=== PATIENT | male | born 1945 | race African-American/Black ===

== ENCOUNTER 2016-12-25 13:58 | Inpatient (IN) | payer MEDICARE, MEDICAID ==
[~2016-12-25] VITALS: Ht 170.2 cm; Wt 63.5 kg
[2016-12-25 14:30] VITALS: BP 129/87
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
[2016-12-25] MEDS ORDERED: HALO100A2 IM (15:11)
[2016-12-25] MEDS ORDERED: DIPH25TA23 PO (15:11)
[2016-12-25] MEDS ORDERED: ACETAMINOPHEN 325 MG TABLET PO PRN (15:30)
[2016-12-25] MEDS ORDERED: MAG HYDROX/AL HYDROX/SIMETH 30 ML UDC PO PRN (15:30)
[2016-12-25] MEDS ORDERED: MAGNESIUM HYDROXIDE 30 ML UDC PO PRN (15:30)
[2016-12-25 15:45] VITALS: BP 109/78
[2016-12-25] MEDS: HALOPERIDOL 5 MG TABLET PO SCH (18:10)
[2016-12-25 19:57] VITALS: BP 124/76
[2016-12-25] MEDS: BENZTROPINE MESYLATE (1 MG) 1 MG TABLET PO SCH (23:30)
--- NOTE | 2016-12-25 23:30 | NUR ---
GPS RN: PATIENT IN THE ROOM, ASLEEP, NOTED TO BE EASILY AGITATED. COGENTIN MEDICATION NOT ADMINISTERED, PATIENT HAS NO SIGNED CONSENT THIS TIME. WILL FOLLOW WITH PATIENT IN THE MORNING.
[2016-12-26 07:00] LABS: ALANINE AMINOTRANSFERASE 37 U/L (12-78); ALBUMIN 3.2 g/dL (3.4-5.0); ALKALINE PHOSPHATASE 69 U/L (46-116); ASPARTATE AMINOTRANSFERASE 38 U/L (15-37); BILIRUBIN,TOTAL 0.7 mg/dL (0.2-1.0); CARBON DIOXIDE 30 mmol/L (21-32); CHLORIDE 104 mmol/L (98-107); CREATININE 1.2 mg/dL (0.6-1.3); GLUCOSE 131 mg/dL (74-106); POTASSIUM 4.3 mmol/L (3.5-5.1); SODIUM SERUM 137 mmol/L (136-145); TOTAL PROTEIN, SERUM 6.6 g/dL (6.4-8.2); UREA NITROGEN, BLOOD 20 mg/dL (7-18)
[2016-12-26 07:01] LABS: CHOLESTEROL 141 mg/dL (<200); HDL CHOLESTEROL 82 mg/dL (40-60); LDL 53 mg/dL (0-99); TRIGLYCERIDES 69 mg/dL (30-150)
[2016-12-26 08:00] VITALS: BP 120/76
[2016-12-26] MEDS: HALOPERIDOL 5 MG TABLET PO SCH ×2 (08:09→16:46)
[2016-12-26] MEDS: BENZTROPINE MESYLATE (1 MG) 1 MG TABLET PO SCH ×2 (08:54→16:46)
[2016-12-26] MEDS: NICOTINE PATCH (21MG) 21 MG PATCH.TD24 TD SCH (09:33)
--- NOTE | 2016-12-26 14:34 | NUR ---
Initial Discharge Plan: Pt resides in [address] [place] [id number]; [facility], [facility]. Pt does not have a telephone #. Pt does not have an emergency personnel consultant, per pt report and Face sheet information. Pt wants to return home upon discharge. SW will follow up. SW will help formulate a safe and proper discharge.
[2016-12-26 15:32] VITALS: BP 108/67
[2016-12-26] MEDS: TEMAZEPAM 7.5 MG CAPSULE PO PRN (21:27)
[2016-12-27 08:00] VITALS: BP 100/53
[2016-12-27] MEDS: DIVALPROEX SODIUM 250 MG TABLET.DR PO SCH ×2 (08:13→17:03)
[2016-12-27] MEDS: BENZTROPINE MESYLATE (1 MG) 1 MG TABLET PO SCH ×2 (08:13→17:04)
[2016-12-27] MEDS: HALOPERIDOL 5 MG TABLET PO SCH ×2 (08:13→17:04)
[2016-12-27] MEDS: NICOTINE PATCH (21MG) 21 MG PATCH.TD24 TD SCH (08:14)
[2016-12-27 16:30] VITALS: BP 138/93
[2016-12-27 20:10] VITALS: BP 127/77
[2016-12-27] MEDS: TEMAZEPAM 7.5 MG CAPSULE PO PRN (21:23)
[2016-12-28 08:06] VITALS: BP 122/77
[2016-12-28] MEDS: HALOPERIDOL 5 MG TABLET PO SCH ×2 (08:15→16:48)
[2016-12-28] MEDS: DIVALPROEX SODIUM 250 MG TABLET.DR PO SCH ×2 (08:15→16:48)
[2016-12-28] MEDS: BENZTROPINE MESYLATE (1 MG) 1 MG TABLET PO SCH ×2 (08:15→16:48)
[2016-12-28] MEDS: NICOTINE PATCH (21MG) 21 MG PATCH.TD24 TD SCH (08:16)
[2016-12-28] MEDS: TMP LEFTEYE SCH ×3 (14:35→21:20)
[2016-12-28] MEDS: POLYMYXIN B SULFATE LEFTEYE SCH ×3 (14:35→21:20)
[2016-12-28 15:38] VITALS: BP 109/79
[2016-12-28 20:00] VITALS: BP 137/94
[2016-12-28] MEDS: clonazePAM 0.5 MG TABLET PO PRN (22:00)
[2016-12-29] MEDS: TEMAZEPAM 7.5 MG CAPSULE PO PRN ×2 (00:14→21:55)
[2016-12-29 07:55] VITALS: BP 125/95
[2016-12-29] MEDS: NICOTINE PATCH (21MG) 21 MG PATCH.TD24 TD SCH ×2 (08:17→08:22)
[2016-12-29] MEDS: BENZTROPINE MESYLATE (1 MG) 1 MG TABLET PO SCH ×2 (08:17→16:23)
[2016-12-29] MEDS: HALOPERIDOL 5 MG TABLET PO SCH ×2 (08:17→16:23)
[2016-12-29] MEDS: TMP LEFTEYE SCH ×4 (08:18→19:30)
[2016-12-29] MEDS: POLYMYXIN B SULFATE LEFTEYE SCH ×4 (08:18→19:30)
[2016-12-29] MEDS ORDERED: DIVALPROEX SODIUM 250 MG TABLET.DR PO SCH (09:00)
--- NOTE | 2016-12-29 15:48 | NUR ---
Pt. refused the eye drops, explained on the importance and still refusing and said " I'm good".
[2016-12-29 16:11] VITALS: BP 127/85
--- NOTE | 2016-12-29 19:30 | NUR ---
PT REFUSED THE EYE DROPS. EXPLAIN THE RISK AND IMPORTANCE. PT STILL REFUSED. WILL ENDORSE TO THE NEXT SHIFT NURSE FOR ELLA.
[2016-12-29 20:03] VITALS: BP 118/65
[2016-12-29] MEDS: clonazePAM 0.5 MG TABLET PO PRN (20:22)
[2016-12-29] MEDS: DIVALPROEX SODIUM 250 MG TABLET.DR PO SCH (22:10)
[2016-12-30] MEDS: TMP LEFTEYE SCH ×4 (07:35→19:30)
[2016-12-30] MEDS: POLYMYXIN B SULFATE LEFTEYE SCH ×4 (07:35→19:30)
[2016-12-30 08:00] VITALS: BP 126/84
[2016-12-30] MEDS: HALOPERIDOL 5 MG TABLET PO SCH ×2 (08:43→16:31)
[2016-12-30] MEDS: BENZTROPINE MESYLATE (1 MG) 1 MG TABLET PO SCH ×2 (08:43→16:31)
[2016-12-30] MEDS: DIVALPROEX SODIUM 250 MG TABLET.DR PO SCH ×3 (08:43→16:31)
[2016-12-30] MEDS: NICOTINE PATCH (21MG) 21 MG PATCH.TD24 TD SCH (08:43)
--- NOTE | 2016-12-30 11:59 | NUR ---
RN-NOTES PATIENT STRONGLY REFUSED 0900 AM AND 11 30 DOSE OF LEFT EYE DROPS MEDICATIONS DESPITE EXPLANATIONS OF THE RISK AND BENEFITS. PATIENT GETS ANGRY AND YELLS AT THE DISTRICT GAUGER. OFFERED X3. ROBI DALY.
[2016-12-30 16:00] VITALS: BP 124/78
[2016-12-30 20:00] VITALS: BP 138/80
--- NOTE | 2016-12-30 21:38 | NUR ---
PT REFUSED THE EYE DROPS. EXPLAIN THE RISK AND IMPORTANCE. PT STILL REFUSED. WILL ENDORSE TO THE NEXT SHIFT NURSE FOR ELLA.
[2016-12-30] MEDS: clonazePAM 0.5 MG TABLET PO PRN (21:47)
[2016-12-31] MEDS: BENZTROPINE MESYLATE (1 MG) 1 MG TABLET PO SCH ×2 (08:14→16:18)
[2016-12-31] MEDS: DIVALPROEX SODIUM 250 MG TABLET.DR PO SCH ×3 (08:14→16:19)
[2016-12-31] MEDS: HALOPERIDOL 5 MG TABLET PO SCH ×2 (08:15→16:18)
[2016-12-31 08:16] VITALS: BP 119/88
[2016-12-31] MEDS: NICOTINE PATCH (21MG) 21 MG PATCH.TD24 TD SCH (08:20)
[2016-12-31] MEDS: POLYMYXIN B SULFATE LEFTEYE SCH ×4 (08:27→19:30)
[2016-12-31] MEDS: TMP LEFTEYE SCH ×4 (08:27→19:30)
[2016-12-31 16:13] VITALS: BP 108/85
[2016-12-31 20:28] VITALS: BP 122/78
[2016-12-31] MEDS: TEMAZEPAM 7.5 MG CAPSULE PO PRN (21:28)
[2017-01-01 08:00] VITALS: BP 131/72
[2017-01-01] MEDS: POLYMYXIN B SULFATE LEFTEYE SCH ×4 (08:21→21:01)
[2017-01-01] MEDS: TMP LEFTEYE SCH ×4 (08:21→21:01)
[2017-01-01] MEDS: BENZTROPINE MESYLATE (1 MG) 1 MG TABLET PO SCH ×2 (08:21→16:58)
[2017-01-01] MEDS: HALOPERIDOL LACTATE 10 MG/5 ML UDC PO SCH ×2 (08:23→21:02)
[2017-01-01] MEDS: DIVALPROEX SODIUM 125 MG CAP.SPRINK PO SCH ×2 (08:23→21:02)
[2017-01-01] MEDS: NICOTINE PATCH (21MG) 21 MG PATCH.TD24 TD SCH (08:24)
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
[2017-01-01 16:00] VITALS: BP 102/52
[2017-01-01 19:52] VITALS: BP 120/74
[2017-01-02 08:00] VITALS: BP 127/79
[2017-01-02] MEDS: BENZTROPINE MESYLATE (1 MG) 1 MG TABLET PO SCH ×2 (08:29→16:24)
[2017-01-02] MEDS: TMP LEFTEYE SCH ×4 (08:29→19:46)
[2017-01-02] MEDS: POLYMYXIN B SULFATE LEFTEYE SCH ×4 (08:29→19:46)
[2017-01-02] MEDS: HALOPERIDOL LACTATE 10 MG/5 ML UDC PO SCH ×2 (08:29→20:39)
[2017-01-02] MEDS: DIVALPROEX SODIUM 125 MG CAP.SPRINK PO SCH ×2 (08:29→20:39)
[2017-01-02] MEDS: NICOTINE PATCH (21MG) 21 MG PATCH.TD24 TD SCH (08:29)
--- NOTE | 2017-01-02 15:55 | NUR ---
SW spoke to Pts Psychiatrist, Danii Vásquez from [facility] who addressed concerns about pts discharge. According to Psychiatrist, pt no longer has an apartment to return to (i.e. pt is being evicted due to ongoing mental health problems). Ms. Vásquez discussed the possibility of conservatorship. SW will discuss pts case with Trimming Caser, Sofía Dao. Per discussion with treating psychiatrist, Dr. Devi NEGRON will look into [facility] facilities for pt. SW will continuing discussing pts discharge plan with treating team in order to ensure pt is properly and safely discharged. SW to follow up.
[2017-01-02 16:00] VITALS: BP 125/76
--- NOTE | 2017-01-02 16:52 | NUR ---
JAMIL faxed inquiries to the following facilities: [facility], [address] [place] [address]; , fax ; [facility], [address] [place] [address] , fax and [facility] . JAMIL will follow up with facilities to ensure pt is properly discharged.
[2017-01-02 20:36] VITALS: BP 126/76
[2017-01-02] MEDS: TEMAZEPAM 7.5 MG CAPSULE PO PRN (21:43)
[2017-01-03 08:00] VITALS: BP 128/78
[2017-01-03] MEDS: TMP LEFTEYE SCH ×4 (08:11→20:31)
[2017-01-03] MEDS: NICOTINE PATCH (21MG) 21 MG PATCH.TD24 TD SCH (08:11)
[2017-01-03] MEDS: DIVALPROEX SODIUM 125 MG CAP.SPRINK PO SCH ×2 (08:11→21:06)
[2017-01-03] MEDS: POLYMYXIN B SULFATE LEFTEYE SCH ×4 (08:11→20:31)
[2017-01-03] MEDS: HALOPERIDOL LACTATE 10 MG/5 ML UDC PO SCH ×2 (08:11→21:07)
[2017-01-03] MEDS: BENZTROPINE MESYLATE (1 MG) 1 MG TABLET PO SCH ×2 (08:11→16:31)
--- NOTE | 2017-01-03 15:43 | NUR ---
Per Cecilia FRANCESW on the case patient's psychiatrist and treatment team were asking about conservatorship. Cecliia directed them to this telegraphic typewriter mechanic. Left a voicemail for Kanika [phone] at 1245 after she left a message on this telegraphic typewriter mechanic's voicemail. At 1630 received a call from Geeta disease case manager rn [phone]. She asked about patient's progress. This telegraphic typewriter mechanic advised her that Cecilia was more familiar with the details of the case and could update her. Advised Geeta and Kanika earlier that pt. was responding well to medication and accepting placement so our psychiatrist saw no grounds to proceed with conservatorship. Filled Cecilia FRANCESW in on the case and she will follow up.Geeta agreed to call Cecilia for an update on patient.
--- NOTE | 2017-01-03 19:30 | NUR ---
RN NOTE; RECEIVED PT WALKING IN THE HALLWAY. BREATHING EVENLY. NO COMBATIVE BEHAVIOR NOTED AT THIS TIME. SNACKS GIVEN PER PT'S REQUEST . NEEDS ATTENDED. WILL CONT TO MONITOR,
[2017-01-03 20:00] VITALS: BP 144/69
[2017-01-03 20:34] VITALS: BP 144/69
--- NOTE | 2017-01-04 06:26 | NUR ---
RN NOTE; PT IN HIS ROOM. AWAKE AND ALERT. NO ACUTE EVENT DURING THE THE NIGHT. NO COMBATIVE BEHAVIOR. ON ONGOING OBSERVATION FOR SAFETY. NEEDS ATTENDED . WILL CONT TO MONITOR AND WILL ENDORSE TO AM SHIFT FOR ELLA .
[2017-01-04 08:00] VITALS: BP 150/92
[2017-01-04] MEDS: NICOTINE PATCH (21MG) 21 MG PATCH.TD24 TD SCH (08:00)
[2017-01-04] MEDS: HALOPERIDOL LACTATE 10 MG/5 ML UDC PO SCH (08:00)
[2017-01-04] MEDS: DIVALPROEX SODIUM 125 MG CAP.SPRINK PO SCH (08:00)
[2017-01-04] MEDS: BENZTROPINE MESYLATE (1 MG) 1 MG TABLET PO SCH (08:00)
[2017-01-04] MEDS: POLYMYXIN B SULFATE LEFTEYE SCH (08:06)
[2017-01-04] MEDS: TMP LEFTEYE SCH (08:06)
--- NOTE | 2017-01-04 16:49 | NUR ---
Discharge Plan: Patient will be discharged to [facility], [address] [place] [address], Via ambulance at 5pm. SW notified pts Psychiatric Nurse, Kanika Dunham, from [facility] regarding discharge plan. Pt has no other family/friends to notify. Pts Certified Breastfeeding Educator at the facility is Dr. Starr and Psychiatrist is Dr. Lanier ; [address] [facility] [address] [place] [address]. The following referrals were provided: Kareem Guadalupe , Phone Mtg., Group Name, Primary Purpose , Sunday at 6pm; [facility] ; [facility], [place] Office, [address] [place] [address]; [facility], [address] [place] [address] ; and [facility], [address]. [address] [address] . Pt inquired about his belongings left in his home of residence. SW will inquire with [facility] staff and follow up. Pt was agreeable with discharge plan.
--- NOTE | 2017-01-04 16:50 | NUR ---
IQH-OG-[id number]: PT IS 72 YEARS OLD MALE DISCHARGE TO [facility] IN [address] [facility]. [phone] IN STABLE CONDITION. COMPLIANT WITH MEDICATIONS, COOPERATIVE WITH TREATMENT PLANS. PT DENIES SI/HI. BEHAVIOR IMPROVED, PSYCHIATRIC TX PLANS MET, MEDICAL TX PLANS DEFERRED FOR CONTINUAL MONITORING. EDUCATED PT ABOUT AFTER CARE PLAN AND COPY PROVIDED. RETURNED PERSONAL BELONGINGS TO PT. MEDICATIONS DR. INIGUEZ AND SENIOR BACK END JAVA DEVELOPER OPHELIA STOVER. REPORT GIVEN TO CARLOS AT [facility] FOR CONTINUITY OF CARE. PT SIGNED DISCHARGE PAPERWORK. PT REFUSED SKIN ASSESSMENT. PT LEFT VIA AMBULANCE.
--- NOTE | 2017-01-08 15:51 | NUR ---
JAMIL spoke to Lisseth Supplier Relationship Director from [facility] and informed her that Mike had been discharged to [facility] [place]. JAMIL also asked that Supplier Relationship Director follow up regarding pts personal property still in his home. Per, Supplier Relationship Director, pts property will stay in his apt. Per Supplier Relationship Director, pts eviction is pending. Supplier Relationship Director discussed contacting pt at the [facility] to provide pt with an update re: his property and apt. JAMIL will continue to provide support.
== END 2017-01-04 16:50 | DRG 885 ==
LOC: GPS 13:58
PROVIDERS: ADMIT Psychiatry & Neurology Psychiatry; ATTEND Internal Medicine
DX: F25.0 Schizoaffective disorder, bipolar type (principal); F23 Brief psychotic disorder; F17.200 Nicotine dependence, unspecified, uncomplicated; F41.9 Anxiety disorder, unspecified; H10.9 Unspecified conjunctivitis; F32.9 Major depressive disorder, single episode, unspecified; Z73.6 Limitation of activities due to disability
CPT/HCPCS: 36415; 80053-TC; 80061-TC; 80164-TC; 87081-TC; Z7610

== ENCOUNTER 2023-01-22 19:13 | Inpatient (IN) | payer MEDICARE, OTHER ==
[~2023-01-22] VITALS: Ht 167.6 cm; Wt 63.0 kg
[~2023-01-22 19:13] MED LIST: HALO5TAB PO; LEVOFLOXACIN OP; PSEU120T57; [UNRECOGNIZED DRUG - OTHER] EACHEYE
[2023-01-22 20:11] LABS: BASOPHILS % (AUTO) 0.3 % (0.0-2.0); EOSINOPHILS # (AUTO) 0.2 K/uL (0.0-0.7); EOSINOPHILS % (AUTO) 3.6 % (0.0-6.0); HEMATOCRIT 39 % (39-51); HEMOGLOBIN 12.6 g/dL (13.5-17.5); LYMPHOCYTES # (AUTO) 1.7 K/uL (0.8-4.8); MEAN CORPUSCULAR HEMOGLOBIN 29 PG (26.0-33.0); MEAN CORPUSCULAR HGB CONC 33 g/dl (31.0-36.0); MEAN CORPUSCULAR VOLUME 90 fL (80-96); MONOCYTES # (AUTO) 0.6 K/uL (0.1-1.30); NEUTROPHILS # (AUTO) 1.7 K/uL (1.8-8.9); NEUTROPHILS % (AUTO) 41.1 % (43.0-81.0); PLATELET COUNT (AUTO) 104 K/uL (150-450); RED BLOOD CELL COUNT(AUTO) 4.28 MIL/uL (4.5-6.0); RED CELL DISTRIBUTION WIDTH 15.1 % (11.5-15.0); WHITE BLOOD COUNT (AUTO) 4.2 K/uL (4.3-11.0)
[2023-01-22 20:25] LABS: INR 1.2 (0.91-1.10); PARTIAL THROMBOPLASTIN TIME 31.3 SEC (24.3-34.3); PROTHROMBIN TIME 12.6 SECS (9.2-11.1)
[2023-01-22 20:47] LABS: CALCIUM, SERUM 8.8 mg/dL (8.5-10.1); CARBON DIOXIDE 32 mmol/L (21-32); CHLORIDE 103 mmol/L (98-107); CREATININE 1.1 mg/dL (0.6-1.3); GLUCOSE 109 mg/dL (74-106); POTASSIUM 4.2 mmol/L (3.5-5.1); SODIUM SERUM 140 mmol/L (136-145); UREA NITROGEN, BLOOD 20 mg/dL (7-18)
[2023-01-22 20:53] LABS: ALANINE AMINOTRANSFERASE 16 U/L (12-78); ALBUMIN 2.9 g/dL (3.4-5.0); ALKALINE PHOSPHATASE 102 U/L (46-116); ASPARTATE AMINOTRANSFERASE 19 U/L (15-37); BILIRUBIN,DIRECT 0.1 mg/dL (0.0-0.2); BILIRUBIN,TOTAL 0.3 mg/dL (0.2-1.0); TOTAL PROTEIN, SERUM 6.8 g/dL (6.4-8.2)
[2023-01-22] MEDS ORDERED: CEFTRIAXONE 1GM BAG (ER ONLY) 50 ML IV ONE ×2 (21:30→22:11)
[2023-01-22] MEDS ORDERED: IV NS 0.9% 1,000 ML BAG IV ONE (21:30)
[2023-01-22] MEDS ORDERED: ZOLPIDEM TARTRATE 5 MG TABLET PO PRN (22:30)
[2023-01-22] MEDS ORDERED: IV D5/0.45 NACL 1,000 ML IV PRN (22:30)
[2023-01-22] MEDS ORDERED: MAG HYDROX/AL HYDROX/SIMETH 30 ML UDC PO PRN (22:30)
[2023-01-22] MEDS ORDERED: Z GUARD REMEDY 4 OZ OINT TP PRN (22:30)
[2023-01-22] MEDS ORDERED: ACETAMINOPHEN 325 MG TABLET PO PRN (22:30)
[2023-01-22] MEDS ORDERED: ONDANSETRON HCL/PF 4 MG/2 ML VIAL IVP PRN (22:30)
[2023-01-22] MEDS ORDERED: MAGNESIUM HYDROXIDE 30 ML UDC PO PRN (22:30)
[2023-01-22 22:44] LABS: APPEARANCE,URINE CLEAR (CLEAR); BILIRUBIN,URINE NEGATIVE (NEGATIVE); BLOOD, URINE NEGATIVE Ery/uL (NEGATIVE); COLOR,URINE YELLOW (YELLOW); KETONES,URINE NEGATIVE (NEGATIVE); LEUKOCYTE ESTERASE ,URINE NEGATIVE (NEGATIVE); NITRITE, URINE NEGATIVE (NEGATIVE); PROTEIN,URINE NEGATIVE (NEGATIVE); UGLUCOSE NEGATIVE (NEGATIVE)
[2023-01-22 23:29] LABS: ANISOCYTOSIS 1+; BASOPHILS % (MANUAL) 0 % (0.0-2.0); EOSINOPHILS % (MANUAL) 2 % (0-4); LYMPHOCYTES % (MANUAL) 31 % (16-48); MONOCYTES % (MANUAL) 11 % (0-11.0); NEUTROPHILS % (MANUAL) 56 (42-76); PLATELET ESTIMATE DECREASED
[2023-01-23] MEDS ORDERED: AZITHROMYCIN 500 MG in IV D5W 250 ML IV SCH (02:30)
[2023-01-23 03:30] VITALS: BP 149/84; TEMP 98.5; O2SAT 95
[2023-01-23] MEDS: ENOXAPARIN SODIUM 40 MG/0.4 ML DISP.SYRIN SQ SCH ×2 (04:05→21:13)
[2023-01-23] MEDS ORDERED: AZITHROMYCIN 500 MG VIAL ONE (05:12)
[2023-01-23 06:18] LABS: BASOPHILS % (AUTO) 0.4 % (0.0-2.0); EOSINOPHILS # (AUTO) 0.1 K/uL (0.0-0.7); EOSINOPHILS % (AUTO) 2.5 % (0.0-6.0); HEMATOCRIT 39 % (39-51); LYMPHOCYTES # (AUTO) 2.1 K/uL (0.8-4.8); LYMPHOCYTES % (AUTO) 43.2 % (20.0-44.0); MEAN CORPUSCULAR HEMOGLOBIN 30 PG (26.0-33.0); MEAN CORPUSCULAR HGB CONC 33 g/dl (31.0-36.0); MEAN CORPUSCULAR VOLUME 90 fL (80-96); MONOCYTES # (AUTO) 0.7 K/uL (0.1-1.30); MONOCYTES % (AUTO) 14.7 % (2.0-12.0); NEUTROPHILS # (AUTO) 1.9 K/uL (1.8-8.9); NEUTROPHILS % (AUTO) 39.2 % (43.0-81.0); PLATELET COUNT (AUTO) 106 K/uL (150-450); RED BLOOD CELL COUNT(AUTO) 4.35 MIL/uL (4.5-6.0); WHITE BLOOD COUNT (AUTO) 4.9 K/uL (4.3-11.0)
[2023-01-23 06:40] LABS: CALCIUM, SERUM 8.6 mg/dL (8.5-10.1); CREATININE 0.8 mg/dL (0.6-1.3); MAGNESIUM 1.9 mg/dL (1.8-2.4); PHOSPHORUS 2.8 mg/dL (2.5-4.9); POTASSIUM 3.9 mmol/L (3.5-5.1)
[2023-01-23 06:47] LABS: THYROID STIMULATING HORMONE 1.67 uIU/mL (0.358-3.74)
[2023-01-23 07:00] VITALS: BP 152/103; TEMP 97.5; O2SAT 96
[2023-01-23] MEDS: PANTOPRAZOLE 40 MG TABLET.DR PO SCH (07:30)
[2023-01-23] MEDS ORDERED: ACET-868 PO (08:00)
[2023-01-23] MEDS ORDERED: CHOL100043 PO (08:00)
[2023-01-23] MEDS ORDERED: NA P133E RC (08:00)
[2023-01-23] MEDS ORDERED: MAGN400O6 PO (08:00)
[2023-01-23] MEDS ORDERED: BENZ1TAB7 PO (08:00)
[2023-01-23] MEDS ORDERED: DIVA-78 PO (08:00)
[2023-01-23] MEDS ORDERED: MULT-213 PO (08:00)
[2023-01-23] MEDS ORDERED: HALO100A4 IM (08:00)
[2023-01-23] MEDS ORDERED: BISA10SU11 RC (08:00)
[2023-01-23 20:06] VITALS: BP 163/98; TEMP 98.2; O2SAT 99
[2023-01-23] MEDS: CEFTRIAXONE 1 G in IV D5W 50 ML IV SCH (21:12)
[2023-01-24 05:58] LABS: BASOPHILS % (AUTO) 0.2 % (0.0-2.0); EOSINOPHILS # (AUTO) 0.1 K/uL (0.0-0.7); HEMATOCRIT 42 % (39-51); HEMOGLOBIN 13.7 g/dL (13.5-17.5); LYMPHOCYTES # (AUTO) 1.9 K/uL (0.8-4.8); LYMPHOCYTES % (AUTO) 46.8 % (20.0-44.0); MEAN CORPUSCULAR HEMOGLOBIN 30 PG (26.0-33.0); MEAN CORPUSCULAR HGB CONC 33 g/dl (31.0-36.0); MEAN CORPUSCULAR VOLUME 91 fL (80-96); MONOCYTES # (AUTO) 0.6 K/uL (0.1-1.30); MONOCYTES % (AUTO) 15.9 % (2.0-12.0); NEUTROPHILS # (AUTO) 1.4 K/uL (1.8-8.9); NEUTROPHILS % (AUTO) 35.1 % (43.0-81.0); PLATELET COUNT (AUTO) 115 K/uL (150-450); RED BLOOD CELL COUNT(AUTO) 4.63 MIL/uL (4.5-6.0); RED CELL DISTRIBUTION WIDTH 15.3 % (11.5-15.0)
[2023-01-24 06:00] LABS: CALCIUM, SERUM 9.2 mg/dL (8.5-10.1); CREATININE 0.9 mg/dL (0.6-1.3)
[2023-01-24 08:00] VITALS: BP 145/83; TEMP 98.2; O2SAT 97
[2023-01-24] MEDS: PANTOPRAZOLE 40 MG TABLET.DR PO SCH (08:06)
[2023-01-24] MEDS ORDERED: CLONIDINE HCL 0.1 MG TABLET PO PRN (10:00)
[2023-01-24 15:58] VITALS: BP 137/96; TEMP 97.8; O2SAT 97
[2023-01-24 20:00] VITALS: BP 135/93; TEMP 98.4; O2SAT 97
[2023-01-24] MEDS: CEFTRIAXONE 1 G in IV D5W 50 ML IV SCH (21:57)
[2023-01-24] MEDS: ENOXAPARIN SODIUM 40 MG/0.4 ML DISP.SYRIN SQ SCH (22:03)
[2023-01-25 07:00] VITALS: BP_SYST 125; BP_SYST 168; BP_DIAS 114; BP_DIAS 78; TEMP 97.7; O2SAT 94
[2023-01-25] MEDS: PANTOPRAZOLE 40 MG TABLET.DR PO SCH (08:01)
[2023-01-25 16:00] VITALS: BP 141/93; TEMP 97.6; O2SAT 96
[2023-01-25 20:00] VITALS: BP 154/100; TEMP 97.7; O2SAT 92
[2023-01-25] MEDS: CEFTRIAXONE 1 G in IV D5W 50 ML IV SCH (21:08)
[2023-01-25] MEDS: ENOXAPARIN SODIUM 40 MG/0.4 ML DISP.SYRIN SQ SCH (21:10)
[2023-01-26] MEDS: PANTOPRAZOLE 40 MG TABLET.DR PO SCH (08:14)
[2023-01-26 09:22] VITALS: BP 152/98; TEMP 98.1; O2SAT 94
== END 2023-01-26 12:30 | DRG 640 ==
LOC: ER 19:15 → MED 01-23 02:15
PROVIDERS: ADMIT Student in an Organized Health Care Education/Training Program; ATTEND Internal Medicine
DX: E86.0 Dehydration (principal); G93.41 Metabolic encephalopathy; N17.0 Acute kidney failure with tubular necrosis; E44.0 Moderate protein-calorie malnutrition; F02.83 Dementia in other diseases classified elsewhere, unspecified severity, with mood disturbance; D64.9 Anemia, unspecified; D69.6 Thrombocytopenia, unspecified; F20.9 Schizophrenia, unspecified; G20.A1 Parkinson's disease without dyskinesia, without mention of fluctuations; F32.A Depression, unspecified; F17.210 Nicotine dependence, cigarettes, uncomplicated; Z68.22 Body mass index [BMI] 22.0-22.9, adult
CPT/HCPCS: 36415; 70450-TC; 71045-TC; 80048-TC; 80076-TC; 83605-TC; 83735-TC; 84100-TC; 84443-TC; 84484-TC; 85025-TC; 85730-TC; 87040-TC; 87081-TC; 87086-TC; 92526; 92611-TC; A4223; G0378; J0456; J0696; J1650; J3490; J7030; J7050; J7060

== ENCOUNTER 2023-03-15 19:45 | Inpatient (IN) | payer MEDICARE, OTHER ==
[~2023-03-15] VITALS: Ht 172.7 cm; Wt 68.5 kg
[~2023-03-15 19:45] MED LIST changes: +ACET-868 PO; +BENZ1TAB7 PO; +BISA10SU11 RC; +CHOL100043 PO; +DIVA-78 PO; +HALO100A4 IM; -LEVOFLOXACIN OP; +MAGN400O6 PO; +MULT-213 PO; +NA P133E RC; -PSEU120T57; -[UNRECOGNIZED DRUG - OTHER] EACHEYE
[2023-03-15 20:50] LABS: BASOPHILS % (AUTO) 0.5 % (0.0-2.0); EOSINOPHILS # (AUTO) 0.1 K/uL (0.0-0.7); EOSINOPHILS % (AUTO) 1.4 % (0.0-6.0); HEMATOCRIT 39 % (39-51); HEMOGLOBIN 13.3 g/dL (13.5-17.5); LYMPHOCYTES # (AUTO) 1.6 K/uL (0.8-4.8); LYMPHOCYTES % (AUTO) 25.4 % (20.0-44.0); MEAN CORPUSCULAR HEMOGLOBIN 31 PG (26.0-33.0); MEAN CORPUSCULAR HGB CONC 34 g/dl (31.0-36.0); MEAN CORPUSCULAR VOLUME 92 fL (80-96); MONOCYTES # (AUTO) 0.9 K/uL (0.1-1.30); MONOCYTES % (AUTO) 13.7 % (2.0-12.0); NEUTROPHILS # (AUTO) 3.8 K/uL (1.8-8.9); PLATELET COUNT (AUTO) 118 K/uL (150-450); RED BLOOD CELL COUNT(AUTO) 4.27 MIL/uL (4.5-6.0); RED CELL DISTRIBUTION WIDTH 15.4 % (11.5-15.0); WHITE BLOOD COUNT (AUTO) 6.4 K/uL (4.3-11.0)
[2023-03-15 21:06] LABS: CALCIUM, SERUM 8.8 mg/dL (8.5-10.1); CARBON DIOXIDE 32 mmol/L (21-32); CHLORIDE 104 mmol/L (98-107); CREATININE 1.2 mg/dL (0.6-1.3); GLUCOSE 116 mg/dL (74-106); SODIUM SERUM 139 mmol/L (136-145); UREA NITROGEN, BLOOD 15 mg/dL (7-18)
[2023-03-15 21:12] LABS: ACETAMINOPHEN 0 ug/ml (10-30); ALANINE AMINOTRANSFERASE 15 U/L (12-78); ALBUMIN 2.9 g/dL (3.4-5.0); ALCOHOL, BLOOD < 3 mg/dL (0-10); ALKALINE PHOSPHATASE 103 U/L (46-116); ASPARTATE AMINOTRANSFERASE 18 U/L (15-37); BILIRUBIN,DIRECT 0.1 mg/dL (0.0-0.2); BILIRUBIN,TOTAL 0.2 mg/dL (0.2-1.0); SALICYLATE 2.9 mg/dL (2.8-20.0); TOTAL PROTEIN, SERUM 6.2 g/dL (6.4-8.2)
[2023-03-15 22:34] LABS: APPEARANCE,URINE CLEAR (CLEAR); BILIRUBIN,URINE NEGATIVE (NEGATIVE); BLOOD, URINE NEGATIVE Ery/uL (NEGATIVE); COLOR,URINE YELLOW (YELLOW); KETONES,URINE NEGATIVE (NEGATIVE); LEUKOCYTE ESTERASE ,URINE NEGATIVE (NEGATIVE); NITRITE, URINE NEGATIVE (NEGATIVE); PROTEIN,URINE NEGATIVE (NEGATIVE); UGLUCOSE NEGATIVE (NEGATIVE); UROBILINOGEN,URINE 0.2 EU/dL (0.2)
[2023-03-15 23:43] LABS: AMPHETAMINE, URINE NEGATIVE (NEGATIVE); BARBITURATE, URINE NEGATIVE (NEGATIVE); BENZODIAZEPINE, URINE NEGATIVE (NEGATIVE); CANNABINOID, URINE NEGATIVE (NEGATIVE); COCCAINE, URINE NEGATIVE (NEGATIVE); OPIATE, URINE NEGATIVE (NEGATIVE); PHENCYCLIDINE SCREEN,URINE NEGATIVE (NEGATIVE)
[2023-03-16 02:30] VITALS: BP 150/89; TEMP 98.3; O2SAT 95
[2023-03-16 02:51] VITALS: BP 150/89; TEMP 98.3; O2SAT 95
[2023-03-16] MEDS ORDERED: MAG HYDROX/AL HYDROX/SIMETH 30 ML UDC PO PRN (03:00)
[2023-03-16] MEDS ORDERED: MAGNESIUM HYDROXIDE 30 ML UDC PO PRN (03:00)
[2023-03-16] MEDS ORDERED: ACETAMINOPHEN 325 MG TABLET PO PRN (03:00)
[2023-03-16] MEDS: BLOOD SUGAR DIAGNOSTIC 1 EACH STRIP IN ONE (03:08)
[2023-03-16 08:00] VITALS: BP 132/98; TEMP 98.6; O2SAT 98
[2023-03-16] MEDS: LORAZEPAM 1 MG TABLET PO PRN (08:28)
[2023-03-16] MEDS: NICOTINE PATCH (14MG) 14 MG PATCH.TD24 TD SCH (09:37)
[2023-03-16 16:00] VITALS: BP 131/90; TEMP 97.6; O2SAT 98
[2023-03-16] MEDS: HALOPERIDOL 5 MG TABLET PO SCH (16:57)
[2023-03-16] MEDS: BENZTROPINE MESYLATE (1 MG) 1 MG TABLET PO SCH (16:57)
[2023-03-16 20:00] VITALS: BP 141/91; TEMP 98.4; O2SAT 97
[2023-03-16] MEDS: DIVALPROEX SODIUM 500 MG TABLET.DR PO SCH (21:00)
[2023-03-17 08:00] VITALS: BP 137/77; TEMP 97.9; O2SAT 99
[2023-03-17 09:14] LABS: BASOPHILS % (AUTO) 0.7 % (0.0-2.0); EOSINOPHILS % (AUTO) 0.6 % (0.0-6.0); HEMATOCRIT 43 % (39-51); HEMOGLOBIN 14.4 g/dL (13.5-17.5); LYMPHOCYTES % (AUTO) 35.8 % (20.0-44.0); MEAN CORPUSCULAR HEMOGLOBIN 31 PG (26.0-33.0); MEAN CORPUSCULAR HGB CONC 33 g/dl (31.0-36.0); MEAN CORPUSCULAR VOLUME 92 fL (80-96); MONOCYTES # (AUTO) 0.7 K/uL (0.1-1.30); MONOCYTES % (AUTO) 12.4 % (2.0-12.0); NEUTROPHILS # (AUTO) 2.9 K/uL (1.8-8.9); NEUTROPHILS % (AUTO) 50.5 % (43.0-81.0); PLATELET COUNT (AUTO) 134 K/uL (150-450); RED CELL DISTRIBUTION WIDTH 15.7 % (11.5-15.0); WHITE BLOOD COUNT (AUTO) 5.7 K/uL (4.3-11.0)
[2023-03-17 09:24] LABS: CALCIUM, SERUM 8.9 mg/dL (8.5-10.1); CREATININE 0.9 mg/dL (0.6-1.3); POTASSIUM 4.2 mmol/L (3.5-5.1)
[2023-03-17 16:00] VITALS: BP 131/70; TEMP 98; O2SAT 98
[2023-03-17] MEDS ORDERED: BISACODYL SUPP (10 MG) 10 MG/SUPP.RECT SUPP.RECT RC PRN (17:30)
[2023-03-17 20:00] VITALS: BP 131/78; TEMP 98.5; O2SAT 97
[2023-03-17] MEDS ORDERED: DIVALPROEX SODIUM 500 MG TABLET.DR PO SCH (21:00)
[2023-03-18 08:00] VITALS: BP 119/92; TEMP 98.8; O2SAT 97
[2023-03-18] MEDS: MULTIVIT W/MINERALS 1 TAB TABLET PO SCH (08:35)
[2023-03-18] MEDS: CHOLECALCIFEROL 1,000 UNIT TABLET (VIT D3) PO SCH (08:35)
[2023-03-18 16:00] VITALS: BP 139/98; TEMP 98.8; O2SAT 99
[2023-03-18 20:46] VITALS: BP 136/88; TEMP 98.8; O2SAT 99
[2023-03-18] MEDS: ZOLPIDEM TARTRATE 5 MG TABLET PO PRN (22:18)
[2023-03-19 08:00] VITALS: BP 128/98; TEMP 97.8; O2SAT 98
[2023-03-19] MEDS: BENZTROPINE MESYLATE (1 MG) 1 MG TABLET PO SCH (13:43)
[2023-03-19] MEDS: HALOPERIDOL 5 MG TABLET PO SCH (13:43)
[2023-03-19 16:00] VITALS: BP 131/91; TEMP 98.8; O2SAT 98
[2023-03-19 20:26] VITALS: BP 130/92; TEMP 98.6; O2SAT 98
[2023-03-20 08:00] VITALS: BP 132/84; TEMP 98.1; O2SAT 96
[2023-03-20] MEDS: OLANZAPINE 10 MG VIAL IM ONE (13:33)
[2023-03-20 16:00] VITALS: BP 143/90; TEMP 98.7; O2SAT 99
[2023-03-20 21:29] VITALS: BP 140/84; TEMP 98.4; O2SAT 96
[2023-03-21 08:00] VITALS: BP 118/90; TEMP 98.7; O2SAT 96
[2023-03-21] MEDS: OLANZAPINE 5 MG TABLET PO SCH (12:17)
[2023-03-21 16:00] VITALS: BP 130/93; TEMP 97.9; O2SAT 98
[2023-03-21 22:12] VITALS: BP 129/89; TEMP 98; O2SAT 94
[2023-03-22 08:00] VITALS: BP 144/99; TEMP 97.8; O2SAT 98
[2023-03-22] MEDS: HALOPERIDOL DECANOATE IM 100 MG/ML AMPUL IM SCH (15:22)
[2023-03-22 16:00] VITALS: BP 134/79; TEMP 98; O2SAT 96
[2023-03-22 20:00] VITALS: BP 120/88; TEMP 98.3; O2SAT 95
[2023-03-23 08:00] VITALS: BP 144/90; TEMP 97.6; O2SAT 96
[2023-03-23 16:00] VITALS: BP_SYST 118; BP_SYST 134; BP_DIAS 72; BP_DIAS 83; TEMP 97.9; TEMP 98.5; O2SAT 98
[2023-03-23 20:00] VITALS: BP 151/94; TEMP 98.5; O2SAT 98
[2023-03-24 08:00] VITALS: BP 139/104; TEMP 98; O2SAT 94
[2023-03-24 16:00] VITALS: BP 127/90; TEMP 97.7; O2SAT 97
[2023-03-24 20:50] VITALS: BP 136/86; TEMP 97.9; O2SAT 97
[2023-03-25 08:00] VITALS: BP 151/98; TEMP 97.7; O2SAT 96
[2023-03-25 16:00] VITALS: BP 128/107; TEMP 97.9; O2SAT 97
[2023-03-25 21:12] VITALS: BP 138/98; TEMP 97.9; O2SAT 98
[2023-03-26 08:00] VITALS: BP 152/98; TEMP 98.1; O2SAT 95
[2023-03-26 16:00] VITALS: BP 130/90; TEMP 98.7; O2SAT 98
[2023-03-26 21:06] VITALS: BP 138/90; TEMP 98.4; O2SAT 98
[2023-03-27 08:00] VITALS: BP 148/80; TEMP 97.9; O2SAT 100
[2023-03-27 16:09] VITALS: BP 109/64; TEMP 97.8; O2SAT 98
[2023-03-27 21:09] VITALS: BP 128/79; TEMP 98.2; O2SAT 95
[2023-03-28 08:00] VITALS: BP 136/98; TEMP 97.3; O2SAT 96
== END 2023-03-28 13:27 | DRG 885 ==
LOC: ER 19:54 → GPS 03-16 01:16
PROVIDERS: ADMIT Psychiatry & Neurology Psychiatry; ATTEND Nurse Practitioner Family
DX: F25.0 Schizoaffective disorder, bipolar type (principal); G93.41 Metabolic encephalopathy; E44.0 Moderate protein-calorie malnutrition; J44.9 Chronic obstructive pulmonary disease, unspecified; D64.9 Anemia, unspecified; D69.6 Thrombocytopenia, unspecified; E88.09 Other disorders of plasma-protein metabolism, not elsewhere classified; G20.A1 Parkinson's disease without dyskinesia, without mention of fluctuations; G40.909 Epilepsy, unspecified, not intractable, without status epilepticus; Z73.6 Limitation of activities due to disability; Z20.822 Contact with and (suspected) exposure to COVID-19; F20.0 Paranoid schizophrenia; Z68.23 Body mass index [BMI] 23.0-23.9, adult; F02.80 Dementia in other diseases classified elsewhere, unspecified severity, without behavioral disturbance, psychotic disturbance, mood disturbance, and anxiety; Z87.891 Personal history of nicotine dependence
CPT/HCPCS: 36415; 80048-TC; 80061-TC; 80076-TC; 80164-TC; 82962-TC; 85025-TC; 87081-TC; 97112-TC; 97116-TC; 97530-TC; G0480; J1631; J3490